=== PATIENT | male | born 1995 | race Caucasian/White ===

== ENCOUNTER 2021-08-21 14:04 | Emergency (ER) | payer MEDICAID, OTHER ==
[~2021-08-21] VITALS: Ht 170.2 cm; Wt 65.0 kg
[2021-08-21] MEDS ORDERED: KETOROLAC 30MG/ML VIAL IM ONE (15:00)
[2021-08-21 15:31] LABS: CLARITY URINE CLEAR (CLEAR); COLOR URINE YELLOW (YELLOW); KETONES URINE NEGATIVE (NEGATIVE); LEUKOCYTE ESTERASE URINE 1+ (NEGATIVE); NITRITE URINE NEGATIVE (NEGATIVE); OCCULT BLOOD URINE NEGATIVE (NEGATIVE); PH URINE 8.5 (4.5-8.0); PROTEIN URINE NEGATIVE (NEGATIVE); SPECIFIC GRAVITY URINE 1.024 (1.005-1.030)
[2021-08-21] MEDS ORDERED: DOXYCYCLINE HYCLATE 100MG CAPSULE PO ONE (16:30)
[2021-08-21] MEDS ORDERED: LIDOCAINE HCL/PF 1% 10 MG/ML 5ML VIAL INFIL ONE (16:30)
[2021-08-21] MEDS ORDERED: LIDOCAINE HCL 1% 10 MG/ML 10ML VIAL IJ NR (16:30)
[2021-08-21] MEDS ORDERED: CEFTRIAXONE SODIUM 500 MG/VIAL IM ONE (16:30)
[2021-08-21] MEDS ORDERED: IBUP-2029 MT (16:47)
[2021-08-21] MEDS ORDERED: DOXY-326 MT (16:47)
[2021-08-21 18:03] VITALS: BP 126/85
[2021-08-25 04:10] LABS: NEISSERIA GONORRHOEAE NAA Negative (Negative)
== END 2021-08-21 18:04 | disposition home or self-care (01) ==
LOC: ER 14:04
DX: N45.1 Epididymitis (principal)
CPT/HCPCS: 76870; 81003; 87491; 87591; 93976; 96372; 99284; J0696; J1885; J3490